=== PATIENT | female | born 1985 | race Caucasian/White ===

== ENCOUNTER 2025-03-22 19:58 | Emergency (ER) | payer OTHER, MEDICAID ==
[~2025-03-22] VITALS: Ht 157.5 cm; Wt 59.0 kg
[2025-03-22 20:03] VITALS: TEMP 37; O2SAT 99
[2025-03-22] MEDS: ACETAMINOPHEN 500MG TABLET PO ONE (20:52)
[2025-03-22] MEDS ORDERED: IBUP-1455 MT (22:22)
[2025-03-22 22:35] VITALS: BP 129/88; PULSE 95; RESP 16; O2SAT 98
== END 2025-03-22 22:41 | disposition home or self-care (01) ==
LOC: ER 19:58
DX: S10.93XA Contusion of unspecified part of neck, initial encounter (principal); S40.019A Contusion of unspecified shoulder, initial encounter; S60.229A Contusion of unspecified hand, initial encounter; S09.8XXA Other specified injuries of head, initial encounter; V89.2XXA Person injured in unspecified motor-vehicle accident, traffic, initial encounter; Y93.89 Activity, other specified; Y92.89 Other specified places as the place of occurrence of the external cause; Y99.8 Other external cause status
CPT/HCPCS: 71045; 73030; 73130; 81025; 99284